=== PATIENT | male | born 1950 | race Caucasian/White ===

== ENCOUNTER 2019-04-09 14:21 | Outpatient (RCR) | payer OTHER | END 2019-04-13 | LOC: RESP 14:21 | PROVIDERS: ATTEND Internal Medicine Critical Care Medicine | DX: J44.9 Chronic obstructive pulmonary disease, unspecified (principal) ==

== ENCOUNTER 2019-04-22 14:21 | Outpatient (RCR) | payer MEDICARE, OTHER | END 2019-05-14 | LOC: RESP 14:21 | PROVIDERS: ATTEND Internal Medicine Critical Care Medicine | DX: J43.2 Centrilobular emphysema (principal) | CPT/HCPCS: G0238 ×2; G0424 ×2 ==